=== PATIENT | male | born 1955 | race Caucasian/White ===

== ENCOUNTER → 2018-01-18 14:21 | Outpatient (CLI) | payer OTHER, SELFPAY ==
--- NOTE | 2018-01-18 13:30 | LES_PTH ---
PATIENT: MARGRET HORTON LOC: [facility] U#:[id number] AGE/SX: 70/M ROOM: RE01/18/[address]: Dr. Jose Johnson MD : 1955 BED: DIS: SPEC #: [id number] RECD: 01/18/18 14:12 STATUS: JHON HENRI #: [id number] JUANCARLOS: 01/18/18 13:[address]: Jose Johnson DEPT: SURGICAL PATHOLOGY RECD BY: Zachary Miranda ENTERED: 01/18/18 14:25 SP TYPE: Lesion OTHR DR: Dr. Harsha Kaba MD Tissues: Skin of breast, NOS Procedures: Surgery Specimen Level IV HEADER OPERATION: Excision subcutaneous lesion left breast PRE-OP DIAGNOSIS: Subcutaneous lesion left breast TISSUE SUBMITTED: Subcutaneous lesion left breast ISCHEMIC TIME: <30 seconds FIXATION TIME: 5 hours MICROSCOPIC DIAGNOSIS Subcutaneous mass, left breast, excisional biopsy: Mature adipose tissue. AM:amber 01/19/18 COMMENT The lesion may represent a lipoma. Clinical correlation is suggested. MICROSCOPIC DESCRIPTION Slides are reviewed. GROSS DESCRIPTION Received in fixative is one container labeled with the patient's name and designated subcutaneous lesion left breast. The specimen consists of an irregular piece of yellow adipose tissue measuring 2 x 2 x 1 cm. The specimen is inked, bisected and reveal yellow adipose cut surfaces without area of hemorrhage, necrosis and cystic degeneration. The entire specimen is submitted in one cassette. / SJ:rg 01/18/18 TC:1 CPT: 57937
== END ==
PROVIDERS: Visit Provider Surgery
DX: N63.0 Unspecified lump in unspecified breast (principal)
CPT/HCPCS: 88305